=== PATIENT | female | born 1990 | race Caucasian/White ===

== ENCOUNTER 2025-05-31 20:04 | Emergency (ER) | payer OTHER ==
[~2025-05-31] VITALS: Ht 170.2 cm; Wt 68.0 kg
[2025-05-31 20:07] VITALS: TEMP 36.6; O2SAT 100
[2025-05-31] MEDS: FAMOTIDINE 20MG/2ML VIAL IV ONE (21:04)
[2025-05-31] MEDS: METHYLPREDNISOLONE SOD SUCC 125MG/2ML (ACT-O-VIAL) IV STA (21:04)
[2025-05-31] MEDS ORDERED: FAMO40TA70 MT (21:45)
[2025-05-31] MEDS ORDERED: FEXO180T87 MT (21:45)
[2025-05-31] MEDS ORDERED: P50 MT (21:45)
[2025-05-31 22:12] VITALS: BP 107/57; PULSE 60; RESP 15; O2SAT 99
== END 2025-05-31 22:17 | disposition home or self-care (01) ==
LOC: ER 20:04
DX: T78.40XA Allergy, unspecified, initial encounter (principal); X58.XXXA Exposure to other specified factors, initial encounter; Z88.2 Allergy status to sulfonamides
CPT/HCPCS: 96374; 96375; 99284; J1308; J2919; Z7610; 96376